=== PATIENT | male | born 1990 | race Caucasian/White ===

== ENCOUNTER 2021-03-16 17:17 | Emergency (ER) | payer OTHER ==
[2021-03-16 17:39] VITALS: RESP 18; TEMP 98.8
[2021-03-16] MEDS ORDERED: DIPH,PERTUS(ACELL)TETVAC-LF 0.5 ML VIAL IM ONE (17:49)
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
[2021-03-16 19:36] VITALS: BP 153/85; PULSE 85
--- NOTE | 2021-03-16 19:39 | XR ---
EXAMINATION TYPE: XR tibia fibula RT, XR ankle complete RT, XR foot complete RT DATE OF EXAM: 03/16/2021 COMPARISON: NONE HISTORY: 31 years Male. STUDY INDICATION GIVEN: pain . TECHNIQUE: 2 radiographs of the tibia and fibula. 3 radiographs of the ankle. 3 radiographs of the fo ot. FINDINGS AND IMPRESSION: Slightly displaced intra-articular fracture of the base of the fifth metatarsal. Soft tissue swelling over the bilateral malleoli greater laterally. There may be a tiny avulsion inju ry from the medial malleolus. Soft tissue swelling adjacent to the proximal fifth metatarsal. Normal ankle mortise. Unremarkable knee joint.
== END 2021-03-16 20:11 | disposition home or self-care (01) ==
LOC: EC 17:17
DX: S92.351A Displaced fracture of fifth metatarsal bone, right foot, initial encounter for closed fracture (principal); Z23 Encounter for immunization; V48.2XXA Person on outside of car injured in noncollision transport accident in nontraffic accident, initial encounter; Y92.410 Unspecified street and highway as the place of occurrence of the external cause
CPT/HCPCS: 29515; 90471; 90715; 99283

== ENCOUNTER 2023-01-18 14:22 | Emergency (ER) | payer OTHER ==
[2023-01-18 14:27] VITALS: BP 158/90; PULSE 94; RESP 18; TEMP 98.5
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
== END 2023-01-18 15:46 | disposition home or self-care (01) ==
LOC: EC 14:22
DX: S11.91XA Laceration without foreign body of unspecified part of neck, initial encounter (principal); F12.90 Cannabis use, unspecified, uncomplicated; W26.0XXA Contact with knife, initial encounter
CPT/HCPCS: 99283

== ENCOUNTER → 2024-05-15 | Outpatient (CLI) | payer BC ==
--- NOTE | 2024-05-17 12:17 | CT ---
EXAMINATION TYPE: CT sinus wo con DATE OF EXAM: 05/15/2024 COMPARISON: None HISTORY: 34-year-old male J32.0, chronic maxillary sinusitis CT DLP: 435.9 mGycm Automated exposure control for dose reduction was used. TECHNIQUE: Noncontrast axial views of the paranasal sinuses were obtained. Coronal and sagittal recon structions were performed. FINDINGS: PARANASAL SINUSES: Small bilateral maxillary sinuses, right more so than the left. Moderate to severe mucosal thickening right maxillary sinus and [id number] left maxillary sinus. Moderate mucosal thickening sphenoid sinuses. Mild within the ethmoid air cells but with some peribronchial opacification posterior air cells. Frontal sinuses are well pneumatized. There is no air-fluid level. Reactive edwin- osteogenesis is not seen. There is no destruction of the osseous bruce of the paranasal sinuses. THE NASAL CAVITY: The osteomeatal complexes are patent. There may be previous bilateral maxillary antrectomies. Leftward nasal septal deviation posteriorly and rightward deviation anteriorly. The imaged brain and orbits are normal in appearance. Mastoid air cells and middle ear cavities are well pneumatized. Reformatted images confirm above findings. IMPRESSION: 1. Small bilateral maxillary sinuses with moderate to severe mucosal thickening on the right and mild -to-moderate on the left. Query prior FESS with bilateral medial maxillary antrectomies. 2. Moderate mucosal thickening sphenoid sinuses and mild within the ethmoid air cells. In addition, t here is some frothy opacification posterior ethmoid air cells that could represent a superimposed acu te viral sinusitis. 3. Undulating nasal septum. [facility], , 05/17/2024 12:15 PM
== END | disposition home or self-care (01) ==
LOC: RADCTMAIN 17:09
PROVIDERS: ATTEND Otolaryngology
DX: J32.0 Chronic maxillary sinusitis (principal)
CPT/HCPCS: 70486